=== PATIENT | female | born 1955 | race Caucasian/White ===

== ENCOUNTER 2018-06-23 16:30 | Emergency (ER) | payer OTHER ==
[2018-06-23] MEDS ORDERED: MORPHINE SULFATE 10 MG/ML INJ IV ONE (18:20)
[2018-06-23] MEDS ORDERED: ONDANSETRON HCL INJ/PF 4 MG/2 ML SDV IV ONE (18:20)
[2018-06-23] MEDS ORDERED: NORMAL SALINE 1000 ML 1,000 ML IV ONE (18:20)
--- NOTE | 2018-06-23 18:22 | ER Document Report ---
ED Medical Screen (RME) - General Chief Complaint: Abdominal Pain Stated Complaint: BACK PAIN Time Seen by Provider: 06/23/18 18:08 Primary Care Provider: KATALINA ARELLANO MD [Primary Care Provider] - Follow up as needed Notes: Patient is a 62-year-old female history of diverticulitis that presents to the emergency department for chief complaint of left lower quadrant abdominal pain. Patient's been having this pain for 4 days now, and seemingly getting worse, she also reports that her eyes were yellow on Saturday, which is since improved, she is concerned that the pain is not improved by now, she has a history of colon resection and colostomy with reversal due to diverticulitis in the past. ROS: Other than noted above, the 12 point review of systems was reviewed with the patient and were negative, all pertinent findings are included in the HPI. PHYSICAL EXAMINATION: Vital signs reviewed. GENERAL: Patient appears uncomfortable on exam HEAD: Atraumatic, normocephalic. EYES: Pupils equal round extraocular movements intact, conjunctiva are normal. ENT: Nares patent NECK: Normal range of motion CV: Heart regular rate and rhythm LUNGS: No respiratory distress Musculoskeletal: Normal range of motion NEUROLOGICAL: Normal speech PSYCH: Normal mood, normal affect. MDM: Patient seen and examined for rapid initial assessment. Vital signs reviewed. A comprehensive ED assessment and evaluation of the patient, analysis of test results and completion of the medical decision making process will be conducted by additional ED providers. *Note is created using voice recognition software and may contain spelling, syntax or grammatical errors. TRAVEL OUTSIDE OF THE [place] IN LAST 30 DAYS: No - Related Data Allergies/Adverse Reactions: No Known Allergies Allergy (Verified 06/23/18 18:07) Past Medical History - Social History Chew tobacco use (# tins/day): No Frequency of alcohol use: None Drug Abuse: None Renal/ Medical History: Denies: Hx Peritoneal Dialysis Physical Exam - Vital signs Vitals: Temp Pulse Resp BP Pulse Ox 98.1 F 103 H 20 164/102 H 98 06/23/18 17:13 06/23/18 17:13 06/23/18 17:13 06/23/18 17:13 06/23/18 17:13 Course - Vital Signs Vital signs: Temp Pulse Resp BP Pulse Ox 98.1 F 103 H 20 164/102 H 98 06/23/18 17:13 06/23/18 17:13 06/23/18 17:13 06/23/18 17:13 06/23/18 17:13 Doctor's Discharge - Discharge Referrals: KATALINA ARELLANO MD [Primary Care Provider] - Follow up as needed
[2018-06-23 20:40] LABS: ABSOLUTE EOSINOPHILS # (AUTO) 0.2 10^3/uL (0.0-0.6); ABSOLUTE LYMPHOCYTES (AUTO) 1.9 10^3/uL (0.5-4.7); ABSOLUTE MONOCYTES (AUTO) 0.7 10^3/uL (0.1-1.4); ABSOLUTE NEUT (AUTO) 6.3 10^3/uL (1.7-8.2); BASOPHILS % (AUTO) 0.4 % (0-2); HEMOGLOBIN 15.8 g/dL (12.0-15.5); LYMPHOCYTES % (AUTO) 21.1 % (13-45); MEAN CORPUSCULAR HEMOGLOBIN 31.6 pg (27.0-33.4); MEAN CORPUSCULAR HGB CONC 34.3 g/dL (32.0-36.0); MEAN CORPUSCULAR VOLUME 92 fl (80-97); MONOCYTES % (AUTO) 7.9 % (3-13); PLATELET COUNT 328 10^3/uL (150-450); RED BLOOD COUNT 4.99 10^6/uL (3.72-5.28); RED CELL DISTRIBUTION WIDTH 13.1 % (11.5-14.0); SEGMENTED NEUTROPHILS % (AUTO) 68.6 % (42-78); TOTAL CELLS COUNTED % (AUTO) 100 %; WHITE BLOOD COUNT 9.2 10^3/uL (4.0-10.5)
[2018-06-23 20:46] LABS: ALANINE AMINOTRANSFERASE 138 U/L (9-52); ALBUMIN 4.4 g/dL (3.5-5.0); ALKALINE PHOSPHATASE 186 U/L (38-126); ANION GAP 10 (5-19); ASPARTATE AMINO TRANSFERASE 79 U/L (14-36); BILIRUBIN,DIRECT 0.9 mg/dL (0.0-0.4); BILIRUBIN,TOTAL 1.8 mg/dL (0.2-1.3); BLOOD UREA NITROGEN 14 mg/dL (7-20); CALCIUM 10.6 mg/dL (8.4-10.2); CARBON DIOXIDE 28 mmol/L (22-30); CHLORIDE 105 mmol/L (98-107); GLUCOSE 94 mg/dL (75-110); LIPASE 70.1 U/L (23-300); POTASSIUM 4.1 mmol/L (3.6-5.0); TOTAL PROTEIN 8.1 g/dL (6.3-8.2)
--- NOTE | 2018-06-23 21:40 | RADIOLOGY REPORT (SQ) ---
CT ABDOMEN PELVIS WITH IV CONTRAST HISTORY: Left lower quadrant pain. COMPARISON: None. TECHNIQUE: CT scan of the abdomen and pelvis with IV contrast. This exam was performed according to our departmental dose-optimization program, which includes automated exposure control, adjustment of the mA and/or kV according to patient size and/or use of iterative reconstruction technique. FINDINGS: The lung bases are clear. No pleural or pericardial effusions. There is no hiatal hernia. The liver, spleen, pancreas, gallbladder, adrenal glands, and kidneys are unremarkable. No urinary stones are seen. The pelvic organs are also unremarkable. There has been a prior hysterectomy. Surgical clips are scattered in the left pelvic sidewall. Surgical sutures are seen in the sigmoid colon. No evidence of acute diverticulitis. There is no small bowel obstruction. The appendix is normal. No intraperitoneal free fluid or free air is seen. The aorta is normal caliber and contains atherosclerotic calcifications. No acute osseous findings are appreciated. Grade 1 anterolisthesis of L4-L5 secondary to facet DJD is noted. IMPRESSION: No acute abdominal or pelvic pathology.
[2018-06-23 21:54] LABS: APPEARANCE,URINE TURBID; BILIRUBIN,URINE NEGATIVE (NEGATIVE); COLOR,URINE AMBER; GLUCOSE, URINE NEGATIVE (NEGATIVE); KETONES,URINE 20 mg/dL (NEGATIVE); LEUKOCYTE ESTERASE,URINE TRACE (NEGATIVE); NITRITE,URINE NEGATIVE (NEGATIVE); PROTEIN,URINE NEGATIVE (NEGATIVE); URINE SPECIFIC GRAVITY 1.026
[2018-06-23] MEDS ORDERED: HYOSCYAMINE SULFATE 0.125 MG TABLET PO ONE (23:15)
--- NOTE | 2018-06-23 23:16 | ER Document Report ---
ED General - General Chief Complaint: Abdominal Pain Stated Complaint: BACK PAIN Time Seen by Provider: 06/23/18 18:08 Primary Care Provider: KATALINA ARELLANO MD [Primary Care Provider] - Follow up in 3-5 days Notes: Patient is a 62-year-old female with a past medical history of chronic low back pain on chronic opiate therapy for pain history of diverticulitis with partial colonic resection and reanastomosis in the remote past, who presents with 4 days to 1 week of left upper, left lower quadrant abdominal pain as well as left low back pain. She states that she is also concerned that her eyes had turned yellow but that this has since resolved. Pain is described as a throbbing, aching, constant pain to the affected areas. Is described as being moderate to severe. Relatively unchanged since onset. Nothing seems to improve or worsen her pain. She states that she has tried Percocet at home with no relief. No history of similar symptoms in the past per her report although she does note that the back pain is relatively unchanged from her chronic low back pain. She has had nausea but no vomiting. No fever. Does have frequent diarrhea. TRAVEL OUTSIDE OF THE [place] IN LAST 30 DAYS: No - Related Data Allergies/Adverse Reactions: No Known Allergies Allergy (Verified 06/23/18 18:07) Past Medical History - General Information source: Patient - Social History Smoking Status: Never Smoker Chew tobacco use (# tins/day): No Frequency of alcohol use: None Drug Abuse: None Lives with: Family Family History: Reviewed & Not Pertinent Patient has suicidal ideation: No Patient has homicidal ideation: No Renal/ Medical History: Denies: Hx Peritoneal Dialysis Review of Systems - Review of Systems Notes: Constitutional: Negative for fever. HENT: Negative for sore throat. Eyes: Negative for visual changes. Cardiovascular: Negative for chest pain. Respiratory: Negative for shortness of breath. Gastrointestinal: Positive for abdominal pain Genitourinary: Negative for dysuria. Musculoskeletal: Positive for low back pain Skin: Negative for rash. Neurological: Negative for headaches, weakness or numbness. 10 point ROS negative except as marked above and in HPI. Physical Exam - Vital signs Vitals: Temp Pulse Resp BP Pulse Ox 98.1 F 103 H 20 164/102 H 98 06/23/18 17:13 06/23/18 17:13 06/23/18 17:13 06/23/18 17:13 06/23/18 17:13 Interpretation: Hypertensive, Tachycardic Notes: PHYSICAL EXAMINATION: GENERAL: Well-appearing, well-nourished and in no acute distress. HEAD: Atraumatic, normocephalic. EYES: Pupils equal round and reactive to light, extraocular movements intact, sclera anicteric, conjunctiva are normal. ENT: nares patent, oropharynx clear without exudates. Moist mucous membranes. NECK: Normal range of motion, supple without lymphadenopathy LUNGS: Breath sounds clear to auscultation bilaterally and equal. No wheezes rales or rhonchi. HEART: Regular rate and rhythm without murmurs ABDOMEN: Soft, mild tenderness to left lower quadrant but no other localized areas of tenderness, normoactive bowel sounds. No guarding, no rebound. No masses appreciated. EXTREMITIES: Normal range of motion, no pitting or edema. No cyanosis. NEUROLOGICAL: No focal neurological deficits. Moves all extremities spontaneously and on command. PSYCH: Normal mood, normal affect. SKIN: Warm, Dry, normal turgor, no rashes or lesions noted. Course - Re-evaluation Re-evalutation: 06/23/18 23:16 Patient presents with 4 days to 1 week of left upper and left lower quadrant abdominal pain as well as chronic low back pain. Patient states that she is also been having associated diarrhea on exam the patient is well in appearance, vitals within acceptable limits. She has minimal tenderness to the palpation of the left lower quadrant but no other areas of abdominal tenderness. CT scan of her abdomen and pelvis obtained in triage does not demonstrate any acute pathology. Labs are broadly unremarkable with exception of mild LFT derangements, minimal bilirubin elevation. Patient has no upper right abdominal pain, no evidence of gallstones on CT. Nothing to suggest that this is biliary in origin at this time. There is no evidence of icterus on exam. I have asked that the patient follow-up with her primary care physician for recheck of her LFTs within the next 1 week. I provided her with a copy of her labs that she has these for comparison for her primary care doctor. The exact etiology of the patient's pain is uncertain and I have advised the patient that there is diagnostic uncertainty today. Given the degree of diagnostic uncertainty I have emphasized with patient that she needs to return to the emergency department immediately for any new or worsening symptoms. At this time will discharge with return precautions and follow-up recommendations. Verbal discharge instructions given a the bedside and opportunity for questions given. Medication warnings reviewed. Patient is in agreement with this plan and has verbalized understanding of return precautions and the need for primary care follow-up in the next 24-72 hours. - Vital Signs Vital signs: Temp Pulse Resp BP Pulse Ox 97.8 F 88 17 146/83 H 98 06/23/18 23:39 06/23/18 23:39 06/23/18 23:39 06/23/18 23:39 06/23/18 23:39 - Laboratory Result Diagrams: 06/23/18 20:00 06/23/18 20:00 Laboratory results interpreted by me: 06/23/18 06/23/18 06/23/18 19:45 20:00 20:00 Hgb 15.8 H Calcium 10.6 H Total Bilirubin 1.8 H Direct Bilirubin 0.9 H AST 79 H ALT 138 H Alkaline Phosphatase 186 H Urine Ketones 20 H Urine Blood SMALL H Urine Urobilinogen 4.0 H Ur Leukocyte Esterase TRACE H - Diagnostic Test Radiology reviewed: Reports reviewed Discharge - Discharge Clinical Impression: Left lower quadrant abdominal pain of unknown etiology, Left upper quadrant abdominal pain of unknown etiology Low back pain Qualifiers: Chronicity: chronic Back pain laterality: bilateral Sciatica presence: without sciatica Qualified Code(s): M54.5 - Low back pain Diarrhea Qualifiers: Diarrhea type: unspecified type Qualified Code(s): R19.7 - Diarrhea, unspec ified Condition: Good Disposition: HOME, SELF-CARE Additional Instructions: You have been seen in the Emergency Department (ED) for abdominal pain. Your evaluation did not identify a clear cause of your symptoms but was generally reassuring. Please follow-up with your primary care doctor regarding your mild liver dysfun ction noted on labs today. Your labs have been included and should be rechecked within the next 1 week. Return to the ED if your abdominal pain worsens or fails to improve, you develop bloody vomiting, bloody diarrhea, you are unable to tolerate fluids due to vomiting, fever greater than 101, or other symptoms that concern you. Prescriptions: Hyoscyamine Sulfate [Levsin 0.125 Tablet] 0.125 mg PO TID PRN #30 tablet PRN Reason: Referrals: KATALINA ARELLANO MD [Primary Care Provider] - Follow up in 3-5 days
[2018-06-23] MEDS ORDERED: HYOSCYAMINE SULFATE 0.125 MG TABLET ONE (23:20)
[2018-06-23 23:49] VITALS: BP 146/83
== END 2018-06-23 23:49 | disposition home or self-care (01) ==
LOC: ER 16:30
DX: M54.5 Low back pain (principal); R10.12 Left upper quadrant pain; R10.32 Left lower quadrant pain; R11.0 Nausea; R19.7 Diarrhea, unspecified; G89.29 Other chronic pain
CPT/HCPCS: 99284; 96361; 96374; 96375; 36415; 83690; 85025; 80053; 81001; 83605; 74177; J3490; J2270; J2405; J7030

== ENCOUNTER → 2018-07-07 | Outpatient (CLI) | payer OTHER ==
--- NOTE | 2018-07-07 08:13 | WOMENS IMAGING REPORT ---
EXAM DESCRIPTION: U/S ABDOMEN LIMITED COMPLETED DATE/TIME: 07/07/2018 7:51 am REASON FOR STUDY: R94.5 ABNORMAL RESULTS OF LIVER FUNCTION STUDIES R94.5 ABNORMAL RESULTS OF LIVER FUNCTION STUDIES COMPARISON: None. TECHNIQUE: Dynamic and static grayscale images acquired of the abdomen and recorded on PACS. Additio nal selected color Doppler and spectral images recorded. LIMITATIONS: None. FINDINGS: PANCREAS: No masses. Visualized pancreatic duct normal caliber. LIVER: The liver measures 13.2 cm in length, normal size. No masses. Echotexture normal. LIVER VASCULATURE: Normal directional flow of the main portal vein and hepatic veins. GALLBLADDER: No stones. The gallbladder wall measures 1.7 mm, normal wall thickness. No pericholecys tic fluid. ULTRASOUND-DETECTED GRACE'S SIGN: Negative. INTRAHEPATIC DUCTS AND COMMON DUCT: CBD measures 3.4 mm in diameter, normal. The and intrahepatic du cts normal caliber. No filling defects. INFERIOR VENA CAVA: Normal flow. AORTA: No aneurysm. RIGHT KIDNEY: The right kidney measures 10.2 x 4.0 x 4.3 cm, normal size. Normal echogenicity. No so lid or suspicious masses. No hydronephrosis. No calcifications. PERITONEAL AND RIGHT PLEURAL SPACE: No ascites or effusions. OTHER: No other significant findings. IMPRESSION: 1. NORMAL RIGHT UPPER QUADRANT ULTRASOUND. TECHNICAL DOCUMENTATION: JOB ID: [id number]- All Rights Reserved Reading location - IP/workstation name: [email or web address]
== END ==
LOC: WI 07:04
PROVIDERS: ATTEND Internal Medicine
DX: R94.5 Abnormal results of liver function studies (principal)
CPT/HCPCS: 76705

== ENCOUNTER 2018-09-21 03:45 | Emergency (ER) | payer OTHER ==
[2018-09-21] MEDS ORDERED: LIDOCAINE 1% INJ-PF (10 MG/ML) 30 ML SDV INJ ONE (04:04)
--- NOTE | 2018-09-21 04:17 | ER Document Report ---
Addendum entered and electronically signed by GHADA SALAZAR FNP 09/21/18 05:59: Discharge - Discharge Clinical Impression: Abscess of finger Qualifiers: Laterality: right Qualified Code(s): L02.511 - Cutaneous abscess of right hand Cellulitis Qualifiers: Site of cellulitis: extremity Site of cellulitis of extremity: finger Laterality: right Qualified Code(s): L03.011 - Cellulitis of right finger Condition: Stable Disposition: HOME, SELF-CARE Instructions: Abscess ([facility]), Cephalexin ([facility]), Post Incision and Drainage, Trimethoprim-Sulfa ([facility]) Additional Instructions: You were seen for an abscess that required drainage. Please clean this area with soap and water twice daily and apply a topical antibiotic. Dress the area after each cleaning. Please return if you develop fever, vomiting, the pain at the site worsens, you notice spreading redness from the area, or you have any other symptoms that are concerning to you. The rash is likely due to infection of your skin. You need to take the antibiotics as prescribed. Do not stop even if the rash goes away until you have completed all the antibiotics. You need to return to emergency department if the redness spreads more than 2 cm in any direction. You should also return if you develop fevers with temperature greater than 101, persistent vomiting, worsening pain, or have any other symptoms that are concerning to you. Please follow-up with orthopedics in regards to this visit. Prescriptions: Cephalexin Monohydrate [Keflex 500 mg Capsule] 500 mg PO Q6H 7 Days #28 capsule Sulfamethoxazole/Trimethoprim [Bactrim Ds Tablet] 1 each PO BID 7 Days #14 tablet Referrals: KATALINA ARELLANO MD [Primary Care Provider] - Follow up in 3-5 days ABHISHEK ROLON DO [ACTIVE STAFF] - Follow up in 1 week Original Note: HPI - HPI Time Seen by Provider: 09/21/18 03:58 Context: Patient is a 62-year-old female who presents emergency department with a chief complaint of a splinter stuck in her right fourth digit at the distal phalanx. This happened 6 days ago. She states that she was unable to get the splinter out and yesterday she started noticing it was getting red and swollen. It is draining a minimal amount of blood. She has not seen her primary care provider in regards to this issue. She is a past medical history of hypertension chronic back pain. She is currently on losartan/hydrochlorothiazide and [place]. - ROS Notes: REVIEW OF SYSTEMS: CONSTITUTIONAL : See HPI EENT: Denies eye, ear, throat, or mouth pain, discharge, or symptoms. Denies nasal or sinus congestion. CARDIOVASCULAR: Denies chest pain. RESPIRATORY: Denies shortness of breath, cough, congestion, difficulty breathing, or wheezing. GASTROINTESTINAL: Denies nausea, vomiting, and diarrhea. Denies abdominal pain. Denies constipation. GENITOURINARY: Denies difficulty urinating, burning, blood in urine, urgency or frequency. MUSCULOSKELETAL: Denies neck and back pain. Denies joint pain or swelling. SKIN: See HPI HEMATOLOGIC : Denies easy bruising or bleeding. LYMPHATIC: Denies swollen, painful, enlarged glands. NEUROLOGICAL: Denies no numbness or tingling denies weakness. Denies headache. Denies altered mental status. Denies alteration in speech. PSYCHIATRIC: Denies stress, anxiety, alteration in sleep patterns, or depression. All other systems reviewed and negative. Past Medical History - Social History Smoking Status: Never Smoker Frequency of alcohol use: None Drug Abuse: None Family History: Reviewed & Not Pertinent Renal/ Medical History: Denies: Hx Peritoneal Dialysis Vertical Provider Document - CONSTITUTIONAL Notes: PHYSICAL EXAMINATION: GENERAL: Appears well, healthy, well-nourished, no acute distress. HEAD: Normocephalic, atraumatic. EYES: PERRL, conjunctiva normal, all extraocular movements intact, sclera nonicteric ENT: Moist mucous membranes. NECK: Supple, no noticeable swelling, redness, rash. Normal range of motion. LUNGS: Equal breath sounds bilaterally and clear to auscultation. No wheezes rales or rhonchi. CARDIOVASCULAR: S1-S2, regular rate, regular rhythm. Radial pulses 2+, normal. ABDOMEN: Normoactive bowel sounds. Soft, nontender, no guarding, no rebound tenderness, and no masses palpated. EXTREMITIES: Normal strength and range of motion, no pitting or edema. No cyanosis. NEUROLOGICAL: Moves all extremities upon command. Strength 5/5 in all extremities. PSYCH: Normal mood, normal affect. SKIN: Warm, dry. Abscess noted to right fourth finger distal phalanx. Normal skin turgor. - INFECTION CONTROL TRAVEL OUTSIDE OF THE [place] IN LAST 30 DAYS: No Course - Re-evaluation Re-evalutation: 09/21/18 05:18 There is no osteomyelitis noted on patient's x-ray. A digital block was done to help with pain and for incision and drainage. Patient's wound was explored and there was no splinter noted. She did have some purulent drainage expressed during the incision and drainage. She will be started on Keflex and Bactrim. Follow-up precautions were given. Verbal discharge instructions were given to the patient. They verbalized understanding. They are stable for discharge. - Vital Signs Vital signs: Temp Pulse Resp BP Pulse Ox 97.9 F 80 16 171/97 H 98 09/21/18 04:00 09/21/18 04:00 09/21/18 04:00 09/21/18 04:00 09/21/18 04:00 Discharge - Discharge Clinical Impression: Abscess of finger Qualifiers: Laterality: right Qualified Code(s): L02.511 - Cutaneous abscess of right hand Cellulitis Qualifiers: Site of cellulitis: extremity Site of cellulitis of extremity: finger Laterality: right Qualified Code(s): L03.011 - Cellulitis of right finger Condition: Stable Disposition: HOME, SELF-CARE Instructions: Abscess ([facility]), Cephalexin ([facility]), Post Incision and Drainage, Trimethoprim-Sulfa ([facility]) Additional Instructions: You were seen for an abscess that required drainage. Please clean this area with soap and water twice daily and apply a topical antibiotic. Dress the area after each cleaning. Please return if you develop fever, vomiting, the pain at the site worsens, you notice spreading redness from the area, or you have any other symptoms that are concerning to you. The rash is likely due to infection of your skin. You need to take the antibiotics as prescribed. Do not stop even if the rash goes away until you have completed all the antibiotics. You need to return to emergency department if the redness spreads more than 2 cm in any direction. You should also return if you develop fevers with temperature greater than 101, persistent vomiting, worsening pain, or have any other symptoms that are concerning to you. Prescriptions: Cephalexin Monohydrate [Keflex 500 mg Capsule] 500 mg PO Q6H 7 Days #28 capsule Sulfamethoxazole/Trimethoprim [Bactrim Ds Tablet] 1 each PO BID 7 Days #14 tablet Referrals: KATALINA ARELLANO MD [Primary Care Provider] - Follow up in 3-5 days
--- NOTE | 2018-09-21 04:48 | RADIOLOGY REPORT (SQ) ---
CLINICAL HISTORY: eval osteomylitis COMPARISON: None. TECHNIQUE: XR FINGERS 09/21/2018 4:13 AM CDT FINDINGS: There is no fracture. Joint spaces are preserved. Soft tissues are unremarkable. IMPRESSION: No radiopaque foreign body. No evidence of osteomyelitis.
[2018-09-21] MEDS ORDERED: SULFAMETHOXAZOLE/TRIMETHOPRIM 800-160 MG TABLET PO ONE (05:20)
[2018-09-21] MEDS ORDERED: CEPHALEXIN 500 MG CAPSULE PO ONE (05:20)
[2018-09-21 05:30] VITALS: BP 149/81
[2018-09-21] MEDS ORDERED: HYDROCODONE/ACETAMINOPHEN 5-325 MG TABLET PO ONE (05:55)
== END 2018-09-21 06:07 | disposition home or self-care (01) ==
LOC: ER 03:45
DX: L02.511 Cutaneous abscess of right hand (principal); L03.011 Cellulitis of right finger
CPT/HCPCS: 99283

== ENCOUNTER 2018-11-20 04:44 | Emergency (ER) | payer OTHER ==
[2018-11-20] MEDS ORDERED: ONDANSETRON HCL INJ/PF 4 MG/2 ML SDV ONE (05:00)
[2018-11-20] MEDS ORDERED: FAMOTIDINE INJ/PF 20 MG/2 ML SDV IV ONE ×2 (05:00→05:01)
[2018-11-20] MEDS ORDERED: DIPHENHYDRAMINE HCL 50 MG/ML VIAL ONE (05:00)
[2018-11-20] MEDS ORDERED: METHYLPREDNISOLONE INJ 125 MG/2 ML SDV ONE (05:00)
[2018-11-20] MEDS ORDERED: METHYLPREDNISOLONE INJ 125 MG/2 ML SDV IV ONE (05:01)
[2018-11-20] MEDS ORDERED: DIPHENHYDRAMINE HCL 50 MG/ML VIAL IV ONE (05:01)
[2018-11-20] MEDS ORDERED: ONDANSETRON HCL INJ/PF 4 MG/2 ML SDV IV ONE (05:02)
--- NOTE | 2018-11-20 05:53 | ER Document Report ---
ED General - General Chief Complaint: Allergic Reaction Stated Complaint: POSSIBLE ALLERGIC REACTION Time Seen by Provider: 11/20/18 05:01 Primary Care Provider: KATALINA ARELLANO MD [Primary Care Provider] - Follow up in 3-5 days Mode of Arrival: Ambulatory Information source: Patient, Relative, [facility] Records Notes: 63-year-old female with hypertension, back pain presents with complaint of diffuse itching and upper lip swelling that awoke her from sleep approximately 1 hour prior to arrival. Patient denies any new medication, soaps, lotions, detergents. She states that she recently returned from a a work trip around 7 PM and was feeling nauseous but had no rash or itching at that time. TRAVEL OUTSIDE OF THE [place] IN LAST 30 DAYS: No - HPI Onset: Just prior to arrival Onset/Duration: Sudden Quality of pain: Burning, Other - Itching Severity: Moderate Pain Level: 2 Associated symptoms: Nausea, Other - Rash. denies: Chest pain, Fever, Hurts to breath, Vomiting, Shortness of breath Exacerbated by: Denies Relieved by: Denies Similar symptoms previously: No Recently seen / treated by doctor: No - Related Data Allergies/Adverse Reactions: No Known Allergies Allergy (Verified 06/23/18 18:07) Past Medical History - General Information source: Patient - Social History Smoking Status: Never Smoker Frequency of alcohol use: None Drug Abuse: None Lives with: Spouse/Significant other Family History: Reviewed & Not Pertinent Patient has suicidal ideation: No Patient has homicidal ideation: No - Past Medical History Cardiac Medical History: Reports: Hx Hypertension Renal/ Medical History: Denies: Hx Peritoneal Dialysis Review of Systems - Review of Systems Notes: REVIEW OF SYSTEMS: CONSTITUTIONAL : Denies fever, chills, or sweats. Denies recent illness. Denies weight loss, recent hospitalizations. EENT: Denies visual changes, eye pain. Denies sore throat, oral lesions, difficulty swallowing. CARDIOVASCULAR: Denies chest pain. Denies palpitations. Denies lower extremity edema. RESPIRATORY: Denies cough. Denies shortness of breath, wheezing. GASTROINTESTINAL: Denies abdominal pain or distention. Denies nausea, vomiting, or diarrhea. Denies blood in vomitus, stools, or per rectum. Denies black, tarry stools. Denies constipation. GENITOURINARY: Denies difficulty urinating, painful urination, frequency, blood in urine, or vaginal discharge. MUSCULOSKELETAL: Denies back or neck pain or stiffness. Denies joint pain or swelling. SKIN: + rash, denies lesions or sores. HEMATOLOGIC : Denies easy bruising or bleeding. LYMPHATIC: Denies swollen glands. NEUROLOGICAL: Denies confusion or altered mental status. Denies loss of consciousness. Denies dizziness or lightheadedness. Denies headache. Denies weakness or paralysis. Denies problems difficulty with ambulation, slurred speech. Denies sensory loss, numbness, or tingling. Denies seizures. PSYCHIATRIC: Denies anxiety or stress. Denies depression, suicidal ideation, or homicidal ideation. Denies visual or auditory hallucinations. Physical Exam - Vital signs Vitals: Temp Pulse Resp BP Pulse Ox 97.4 F 124 H 24 H 187/130 H 98 11/20/18 04:51 11/20/18 04:51 11/20/18 04:51 11/20/18 04:51 11/20/18 04:51 - Notes Notes: PHYSICAL EXAMINATION: GENERAL: Well-appearing, well-nourished and in no acute distress. HEAD: Atraumatic, normocephalic. EYES: Pupils equal round and reactive to light, extraocular movements intact, conjunctiva are normal. ENT: Nares patent, oropharynx clear without exudates. Moist mucous membranes. NECK: Normal range of motion, supple without lymphadenopathy LUNGS: Breath sounds clear to auscultation bilaterally and equal. No wheezes rales or rhonchi. HEART: Regular rate and rhythm without murmurs ABDOMEN: Soft, nontender, nondistended abdomen. No guarding, no rebound. No masses appreciated. Female : deferred Musculoskeletal: Normal range of motion, no pitting or edema. No cyanosis. NEUROLOGICAL: Cranial nerves grossly intact. Normal speech, normal gait. Normal sensory, motor exams PSYCH: Normal mood, normal affect. SKIN: Diffuse urticaria of the lower extremities and abdomen. Course - Re-evaluation Re-evalutation: Temp Pulse Resp BP Pulse Ox 97.9 F 124 H 12 148/92 H 97 11/20/18 05:30 11/20/18 04:51 11/20/18 05:30 11/20/18 05:30 11/20/18 05:30 11/20/18 06:03 After performing a Medical Screening Examination, I estimate there is LOW risk for AIRWAY COMPROMISE, ANAPHYLAXIS, , EPIGLOTTIS, thus I consider the discharge disposition reasonable. Also, there is no evidence or peritonitis, sepsis, or toxicity. I have reevaluated this patient multiple times and no significant life threatening changes are noted. The patient and I have discussed the diagnosis and risks, and we agree with discharging home with close follow-up with the understanding that symptoms and presentations can change. We also discussed returning to the Emergency Department immediately if new or worsening symptoms occur. We have discussed the symptoms which are most concerning (e.g., difficulty breathing or swallowing, fever, changing or worsening pain) that necessitate immediate return. Patient received Benadryl, Solu-Medrol, Pepcid and had quick resolution of her diffuse erythema and itching. Patient had no associated wheezing, vomiting. Patient was evaluated and treated as appropriate for the patient's presenting symptoms and complaint, with consideration of any critical or life threatening conditions that may be associated with their obtained history and exam as noted above. All results were discussed with patient. Patient provided the opportunity to ask questions, and express concerns. Patient was educated on treatments based on their presumed diagnosis as noted above. At this time we will discharge the patient with return precautions and follow-up recommendations. Verbal discharge instructions given a the bedside. Medication warnings reviewed. Patient is in agreement with this plan and has verbalized understanding of return precautions. After careful consideration I feel that that patient can be safely discharged from the emergency department, they were advised to followup with a primary care physician in 2-3 days. Dictation on this chart was performed using voice recognition software and may result in unintended grammatical, spelling, syntax or errors. - Vital Signs Vital signs: Temp Pulse Resp BP Pulse Ox 97.9 F 124 H 18 151/87 H 100 11/20/18 07:13 11/20/18 04:51 11/20/18 07:05 11/20/18 07:05 11/20/18 07:05 Discharge - Discharge Clinical Impression: Allergic reaction Qualifiers: Encounter type: initial encounter Qualified Code(s): T78.40XA - Allergy, unspecified, initial encounter Condition: Good Disposition: HOME, SELF-CARE Instructions: Acute Allergic Reaction ([facility]) Prescriptions: Prednisone [Deltasone 20 mg Tablet] 2 tab PO DAILY 5 Days #10 tablet Famotidine [Pepcid 40 mg Tablet] 40 mg PO DAILY #5 tablet Forms: Elevated Blood Pressure Referrals: KATALINA ARELLANO MD [Primary Care Provider] - Follow up in 3-5 days
[2018-11-20 07:13] VITALS: BP 151/87
== END 2018-11-20 07:14 | disposition home or self-care (01) ==
LOC: ER 04:44
DX: T78.40XA Allergy, unspecified, initial encounter (principal); R22.0 Localized swelling, mass and lump, head; L50.9 Urticaria, unspecified; X58.XXXA Exposure to other specified factors, initial encounter; I10 Essential (primary) hypertension; R11.0 Nausea
CPT/HCPCS: J1200; J2930; J2405; S0028; 96374; 96375; 99283

== ENCOUNTER 2019-10-10 14:28 | Emergency (ER) | payer OTHER ==
--- NOTE | 2019-10-10 15:08 | RADIOLOGY REPORT (SQ) ---
EXAM DESCRIPTION: CHEST SINGLE VIEW IMAGES COMPLETED DATE/TIME: 10/10/2019 3:01 pm REASON FOR STUDY: chest pain COMPARISON: None. EXAM PARAMETERS: NUMBER OF VIEWS: One view. TECHNIQUE: Single frontal radiographic view of the chest acquired. RADIATION DOSE: NA LIMITATIONS: None. FINDINGS: LUNGS AND PLEURA: No opacities, masses or pneumothorax. No pleural effusion. MEDIASTINUM AND HILAR STRUCTURES: No masses. Contour normal. HEART AND VASCULAR STRUCTURES: Heart normal in size. Normal vasculature. BONES: No acute findings. HARDWARE: None in the chest. OTHER: No other significant finding. IMPRESSION: NO ACUTE RADIOGRAPHIC FINDING IN THE CHEST. TECHNICAL DOCUMENTATION: JOB ID: [id number] 2010 [employer]- All Rights Reserved Reading location - IP/workstation name: [email or web address]
[2019-10-10] MEDS ORDERED: METOPROLOL SUCCINATE 25 MG TAB.SR.24H PO ONE (15:37)
[2019-10-10] MEDS ORDERED: FENTANYL CITRATE INJ/PF 100 MCG/2 ML AMPUL IV ONE (15:38)
[2019-10-10] MEDS ORDERED: DIPHENHYDRAMINE HCL 50 MG/ML VIAL IV ONE (15:38)
[2019-10-10] MEDS ORDERED: METOCLOPRAMIDE HCL INJ/PF 10 MG/2 ML SDV IV ONE (15:38)
[2019-10-10 16:11] LABS: ABSOLUTE EOSINOPHILS # (AUTO) 0.3 10^3/uL (0.0-0.6); ABSOLUTE LYMPHOCYTES (AUTO) 1.5 10^3/uL (0.5-4.7); ABSOLUTE NEUT (AUTO) 4.6 10^3/uL (1.7-8.2); BASOPHILS % (AUTO) 0.4 % (0-2); EOSINOPHILS % (AUTO) 3.9 % (0-6); HEMATOCRIT 41.5 % (36.0-47.0); HEMOGLOBIN 14.1 g/dL (12.0-15.5); LYMPHOCYTES % (AUTO) 20.7 % (13-45); MEAN CORPUSCULAR HEMOGLOBIN 31.8 pg (27.0-33.4); MEAN CORPUSCULAR HGB CONC 34.1 g/dL (32.0-36.0); MEAN CORPUSCULAR VOLUME 93 fl (80-97); MONOCYTES % (AUTO) 13.1 % (3-13); PLATELET COUNT 290 10^3/uL (150-450); RED BLOOD COUNT 4.45 10^6/uL (3.72-5.28); SEGMENTED NEUTROPHILS % (AUTO) 61.9 % (42-78); TOTAL CELLS COUNTED % (AUTO) 100 %; WHITE BLOOD COUNT 7.5 10^3/uL (4.0-10.5)
--- NOTE | 2019-10-10 16:12 | EKG REPORT ---
SEVERITY:- NORMAL ECG - SINUS RHYTHM : Confirmed by: Ernst Ford MD 10-Oct-2019 16:12:17
[2019-10-10 16:38] LABS: ALBUMIN 4.4 g/dL (3.5-5.0); ALKALINE PHOSPHATASE 77 U/L (38-126); ANION GAP 7 (5-19); ASPARTATE AMINO TRANSFERASE 38 U/L (14-36); BILIRUBIN,TOTAL 1.2 mg/dL (0.2-1.3); BLOOD UREA NITROGEN 22 mg/dL (7-20); CALCIUM 10.4 mg/dL (8.4-10.2); CARBON DIOXIDE 28 mmol/L (22-30); CHLORIDE 101 mmol/L (98-107); GLUCOSE 91 mg/dL (75-110); POTASSIUM 4.4 mmol/L (3.6-5.0); TOTAL PROTEIN 7.7 g/dL (6.3-8.2)
[2019-10-10 19:04] VITALS: BP 125/89
--- NOTE | 2019-10-13 09:50 | ER Document Report ---
Entered by LOUIE DOCKERY SCRIBE 10/10/19 1521 Acting as scribe for:GREGG BROCK, DO ED General - General Chief Complaint: Chest Pain Stated Complaint: CHEST PAIN Time Seen by Provider: 10/10/19 15:17 Primary Care Provider: KATALINA ARELLANO MD [Primary Care Provider] - Follow up as needed LUIS MIGUEL TURCIOS MD [ACTIVE PROVISIONAL STAFF] - Follow up as needed Information source: Patient Notes: This 63-year-old female patient presents to the emergency department today with complaints of chest pain. Patient states that last night she ate half of a hamburger prior to going to bed and she woke up around midnight with what she thought was indigestion. Patient states she was able to get back to sleep and then at 4:30 AM she was awoken again with a "heavy tightness in her chest". Patient reports that this chest pain was 5/5, and was relieved by taking a baby aspirin. Patient mentions when the pain sets she gets short of breath, lightheaded, and she now has a headache. Patient denies a history of coronary artery disease. Patient denies any fevers or cough. TRAVEL OUTSIDE OF THE [place] IN LAST 30 DAYS: No - Related Data Allergies/Adverse Reactions: No Known Allergies Allergy (Verified 06/23/18 18:07) Past Medical History - General Information source: Patient - Social History Smoking Status: Current Every Day Smoker Cigarette use (# per day): Yes Frequency of alcohol use: None Drug Abuse: None Lives with: Family Family History: Reviewed & Not Pertinent - Past Medical History Cardiac Medical History: Reports: Hx Hypertension Surgical Hx: Negative Review of Systems - Review of Systems Constitutional: denies: Fever EENT: No symptoms reported Cardiovascular: See HPI, Chest pain, Lightheaded Respiratory: See HPI, Short of breath. denies: Cough Gastrointestinal: No symptoms reported Genitourinary: No symptoms reported Female Genitourinary: No symptoms reported Musculoskeletal: No symptoms reported Skin: No symptoms reported Hematologic/Lymphatic: No symptoms reported Neurological/Psychological: See HPI, Headaches -: Yes All other systems reviewed and negative Physical Exam - Vital signs Vitals: Temp Pulse Resp BP Pulse Ox 98.5 F 94 18 148/92 H 98 10/10/19 14:40 10/10/19 14:40 10/10/19 14:40 10/10/19 14:40 10/10/19 14:40 Interpretation: Normal - Notes Notes: Physical Exam: General: Alert, appears well. HEENT: Normocephalic. Atraumatic. PERRL. Extraocular movements intact. Oropharynx clear. Neck: Supple. Non-tender. Respiratory: No respiratory distress. Clear and equal breath sounds bilaterally. Cardiovascular: Regular rate and rhythm. Abdominal: Normal Inspection. Non-tender. No distension. Normal Bowel Sounds. Back: No gross abnormalities. Extremities: Moves all four extremities. Upper extremities: Normal inspection. Normal ROM. Lower extremities: Normal inspection. No edema. Normal ROM. Neurological: Normal cognition. AAOx4. Normal speech. Psychological: Normal affect. Normal Mood. Skin: Warm. Dry. Normal color. - General General appearance: Appears well, Alert - HEENT Head: Normocephalic, Atraumatic Eyes: Normal Pupils: PERRL - Respiratory Respiratory status: No respiratory distress Chest status: Nontender Breath sounds: Normal Chest palpation: Normal - Cardiovascular Rhythm: Regular Heart sounds: Normal auscultation - Abdominal Inspection: Normal Distension: No distension Bowel sounds: Normal Tenderness: Nontender - Back Back: Nontender - Extremities General upper extremity: Normal inspection, Nontender, Normal color, Normal ROM, Normal temperature General lower extremity: Normal inspection, Nontender, Normal color, Normal ROM, Normal temperature, Normal weight bearing. No: Roel's sign - Neurological Neuro grossly intact: Yes Cognition: Normal [place] Coma Scale Eye Opening: Spontaneous [place] Coma Scale Verbal: Oriented [place] Coma Scale Motor: Obeys Commands Yvrose Coma Scale Total: 15 Speech: Normal Sensory: Normal - Psychological Associated symptoms: Normal affect, Normal mood - Skin Skin Temperature: Warm Skin Moisture: Dry Skin Color: Normal Course - Re-evaluation Re-evalutation: 10/10/19 16:55 Pt seen and resting with family in room. 1st Trop -. Awaiting second. Still a bit of pain. EKG is reassuring. 10/10/19 19:04 Upon recheck after 2nd trop she is resting and pain free. Discuussed pcp follow up and caridology referral to discuss possible stress. She expressed understanding. - Vital Signs Vital signs: Temp Pulse Resp BP Pulse Ox 98.4 F 94 15 125/89 H 98 10/10/19 19:00 10/10/19 14:40 10/10/19 19:01 10/10/19 19:00 10/10/19 19:00 - Laboratory Result Diagrams: 10/10/19 15:16 10/10/19 15:16 Laboratory results interpreted by me: 10/10/19 10/10/19 15:16 15:16 [place] % (Auto) 13.1 H Sodium 135.6 L BUN 22 H Calcium 10.4 H AST 38 H Discharge - Discharge Clinical Impression: Chest pain in adult, Indigestion Condition: Stable Disposition: HOME, SELF-CARE Instructions: Chest Wall Pain ([facility]), Chest Pain of Unclear Cause ([facility]), Reflux Disease (GERD) ([facility]) Additional Instructions: See your doctor in follow up. Rest. Take your medicine as directed. Please return here for chest pain, shortness of breath or other problems or concerns. Prescriptions: Sucralfate [Carafate] 1 gm PO TID 10 Days #1 bottle Referrals: KATALINA ARELLANO MD [Primary Care Provider] - Follow up as needed LUIS MIGUEL TURCIOS MD [ACTIVE PROVISIONAL STAFF] - Follow up as needed I personally performed the services described in the documentation, reviewed and edited the documentation which was dictated to the scribe in my presence, and it accurately records my words and actions.
== END 2019-10-10 19:10 | disposition home or self-care (01) ==
LOC: ER 14:28
DX: R07.89 Other chest pain (principal); K30 Functional dyspepsia; R06.02 Shortness of breath; R42 Dizziness and giddiness; R51 Headache; F17.210 Nicotine dependence, cigarettes, uncomplicated; I10 Essential (primary) hypertension
CPT/HCPCS: 93005; 99285; 96374; 96375; 96365; 36415; 83690; 83735; 85025; 80053; 84484; 71045; 93010; J1200; J3010; J2765

== ENCOUNTER → 2019-11-05 | Outpatient (CLI) | payer OTHER ==
[~2019-11-05] MED LIST: REGADENOSON INJ 0.4 MG/5 ML DISP.SYRIN IV ONE
--- NOTE | 2019-11-05 14:22 | DRAGON STRESS TEST REPORT ---
Name: Pooja Samuels : Sep Date: NOV 18 The patient underwent a stress/rest, single isotope SPECT Imaging with pharmacological stress and gated SPECT imaging on for evaluation of. The patient underwent infusion of regadnoson 0.4mg IV using the standard protocol. The heart rate was 90 beats per minute at baseline and increased to 104 beats during the infusion of regadenoson. The resting blood pressure was 123/67 mm/Hg and decreased to 112/64 mm/Hg, which is a normal response. The patient complained of dyspnea during the procedure. The resting electrocardiogram demonstrated NSR. Stress electrocardiogram is non- diagnostic in the setting of pharmacological stress. Myocardial perfusion imaging was performed at rest following the injection of 10.64 mCi of sestamibi. At peak pharmacolgic effect, the patient was injected with 32.2 mCi of sestamibi. Gating post-stress tomographic imaging was performed 60 minutes after stress. Findings The overall quality of the study is good. Raw images demonstrate no significant artifacts. Left ventricular cavity is noted to be normal/ enlarged on the rest and stress studies. Resting SPECT images demonstrate homogeneous tracer distribution throughout the myocardium. The stress images reveal homogeneous tracer distribution throughout the myocardium. Gated SPECT imaging reveals normal myocardial thickening and wall motion. The left ventricular ejection fraction was calculated to be 59% Impression -Myocardial perfusion imaging is normal with the above artifacts. -There is no scintigraphic evidence of ischemia or infarct. -Overall left ventricular systolic function was normal without wall motion abnormalities. -There are no prior studies for comparison. [facility]
== END ==
LOC: RAD 08:39
PROVIDERS: ATTEND Internal Medicine Cardiovascular Disease
DX: R07.89 Other chest pain (principal); I10 Essential (primary) hypertension
CPT/HCPCS: 93017; 78452; A9500; J2785; Q9969